=== PATIENT | male | born 1960 | race Caucasian/White ===

== ENCOUNTER 2017-04-16 07:56 | Inpatient (IN) | payer BC, MEDICARE ==
[2017-04-16] MEDS ORDERED: ONDANSETRON 4 MG/2 ML VIAL IVP STA (08:22)
[2017-04-16] MEDS ORDERED: SODIUM CHLORIDE 0.9% 1,000 ML IV ONE (08:22)
[2017-04-16] MEDS ORDERED: HYDROmorphone 1 MG/ML 1 ML SYRINGE IVP STA (08:22)
[2017-04-16 08:31] LABS: Basophils # (A) 0.1 k/uL (0-0.2); Basophils % (A) 1 %; Eosinophils # (A) 0.3 k/uL (0-0.7); Eosinophils % (A) 3 %; HCT 51.8 % (39.0-53.0); HDW 2.21; HGB 17.2 gm/dL (13.0-17.5); Luc # (Auto) 0.22; Luc % (Auto) 2; Lymphocytes # (A) 2.1 k/uL (1.0-4.8); Lymphocytes % (A) 19 %; MCH 32.3 pg (25.0-35.0); MCHC 33.2 g/dL (31.0-37.0); MCV 97.3 fL (80.0-100.0); Monocytes # (A) 0.6 k/uL (0-1.0); Monocytes % (A) 5 %; Neutrophils # (A) 7.8 k/uL (1.3-7.7); Neutrophils % (A) 71 %; RBC 5.33 m/uL (4.30-5.90)
--- NOTE | 2017-04-16 08:31 | ED ---
Abdominal Pain HPI - General Chief Complaint: Abdominal Pain Stated Complaint: abd pain Time Seen by Provider: 04/16/17 08:10 Source: patient, RN notes reviewed Mode of arrival: ambulatory Limitations: no limitations - History of Present Illness Initial Comments: Patient is a 57-year-old male presents to the emergency room for evaluation of abdominal pain. Patient states pain began around 4 AM this morning. Patient states the pain is epigastric area. Patient states he can't sit still secondary to pain. Patient states she has a history of bariatric surgery about [address] Juarez. Patient denies any complications after the surgery. She denies new foods or recent travel outside the country. Patient states she hasn't been able to urinate this morning. Patient denies history of kidney stones. Patient states she is nauseous but denies vomiting. Patient denies constipation or diarrhea. Patient denies chest pain or shortness of breath. Patient denies fevers or chills. Patient denies headache or dizziness. - Related Data Home Medications Medication Instructions Recorded Confirmed Amitriptyline HCl [Elavil] 50 mg PO HS 04/16/17 04/16/17 Naproxen [Naprosyn] 500 mg PO Q12HR PRN 04/16/17 04/16/17 fentaNYL 50MCG/HR PATCH [Duragesic 50 mcg TRANSDERM Q48H 04/16/17 04/16/17 50MCG/HR] tiZANidine HCL [Zanaflex] 4 mg PO Q6H PRN 04/16/17 04/16/17 Allergies Allergy/AdvReac Type Severity Reaction Status Date / Time No Known Allergies Allergy Verified 04/16/17 11:17 Review of Systems ROS Statement: Those systems with pertinent positive or pertinent negative responses have been documented in the HPI. ROS Other: All systems not noted in ROS Statement are negative. Past Medical History Past Medical History: COPD History of Any Multi-Drug Resistant Organisms: None Reported Past Surgical History: Bariatric Surgery Additional Past Surgical History / Comment(s): Pt states he has pins and rods in L1 and S5 Past Psychological History: Anxiety Smoking Status: Current every day smoker Past Alcohol Use History: Occasional Past Drug Use History: None Reported General Exam - General Exam Comments Initial Comments: Pacing exam room, anxious secondary to pain. Limitations: no limitations General appearance: alert, anxious Head exam: Present: atraumatic, normocephalic, normal inspection Eye exam: Present: normal appearance ENT exam: Present: normal exam Neck exam: Present: normal inspection Respiratory exam: Present: normal lung sounds bilaterally. Absent: respiratory distress Cardiovascular Exam: Present: regular rate, normal rhythm, normal heart sounds GI/Abdominal exam: Present: soft, tenderness (mid-epigastric), guarding ( Voluntary guarding on palpation), normal bowel sounds. Absent: rebound, rigid Extremities exam: Present: normal inspection Back exam: Present: normal inspection Neurological exam: Present: alert, oriented X3, CN II-XII intact Psychiatric exam: Present: normal affect, anxious Skin exam: Present: warm, dry, intact, normal color. Absent: rash Course Vital Signs 04/16/17 04/16/17 07:57 11:44 Temperature 97.5 F L 97.3 F L Pulse Rate 62 68 Respiratory 20 15 Rate Blood Pressure 129/75 123/72 O2 Sat by Pulse 93 L 98 Oximetry Medical Decision Making - Lab Data Result diagrams: 04/16/17 08:10 04/16/17 08:10 Lab Results 04/16/17 04/16/17 04/16/17 Range/Units 08:10 08:10 08:55 WBC 11.0 H (3.8-10.6) k/uL RBC 5.33 (4.30-5.90) m/uL Hgb 17.2 (13.0-17.5) gm/dL Hct 51.8 (39.0-53.0) % MCV 97.3 (80.0-100.0) fL MCH 32.3 (25.0-35.0) pg MCHC 33.2 (31.0-37.0) g/dL RDW 13.0 (11.5-15.5) % Plt Count 246 (150-450) k/uL Neutrophils % 71 % Lymphocytes % 19 % Monocytes % 5 % Eosinophils % 3 % Basophils % 1 % Neutrophils # 7.8 H (1.3-7.7) k/uL Lymphocytes # 2.1 (1.0-4.8) k/uL Monocytes # 0.6 (0-1.0) k/uL Eosinophils # 0.3 (0-0.7) k/uL Basophils # 0.1 (0-0.2) k/uL Sodium 141 (137-145) mmol/L Potassium 4.7 (3.5-5.1) mmol/L Chloride 103 (98-107) mmol/L Carbon Dioxide 28 (22-30) mmol/L Anion Gap 10 mmol/L BUN 21 H (9-20) mg/dL Creatinine 0.79 (0.66-1.25) mg/dL Est GFR (MDRD) Af Amer >60 (>60 ml/min/1.73 sqM) Est GFR (MDRD) Non-Af >60 (>60 ml/min/1.73 sqM) Glucose 116 H (74-99) mg/dL Calcium 10.2 (8.4-10.2) mg/dL Magnesium 1.8 (1.6-2.3) mg/dL Total Bilirubin 0.6 (0.2-1.3) mg/dL AST 28 (17-59) U/L ALT 33 (21-72) U/L Alkaline Phosphatase 95 (38-126) U/L Total Protein 8.2 (6.3-8.2) g/dL Albumin 4.5 (3.5-5.0) g/dL Amylase 53 (30-110) U/L Lipase 73 (23-300) U/L Urine Color Yellow Urine Appearance Clear (Clear) Urine pH 5.5 (5.0-8.0) Ur Specific Haynes 1.033 (1.001-1.035) Urine Protein 1+ H (Negative) Urine Glucose (UA) Negative (Negative) Urine Ketones Trace H (Negative) Urine Blood Small H (Negative) Urine Nitrite Negative (Negative) Urine Bilirubin Negative (Negative) Urine Urobilinogen 3.0 (<2.0) mg/dL Ur Leukocyte Esterase Small H (Negative) Urine RBC 15 H (0-5) /hpf Urine WBC 5 (0-5) /hpf Ur Squamous Epith Cells 1 (0-4) /hpf Calcium Oxalate Crystal Occasional H (None) /hpf Hyaline Casts 1 (0-2) /lpf Urine Mucus Many H (None) /hpf Disposition Clinical Impression: Small bowel obstruction Disposition: ADMITTED IP TO THIS [facility] Condition: Stable Referrals: Rey Brewer MD [Primary Care Provider] - 1-2 days Decision Date: 04/16/17
[2017-04-16 08:42] LABS: ALT 33 U/L (21-72); AST 28 U/L (17-59); Alkaline Phosphatase 95 U/L (38-126); Amylase 53 U/L (30-110); Anion Gap 10 mmol/L; Blood Urea Nitrogen 21 mg/dL (9-20); Calcium 10.2 mg/dL (8.4-10.2); Carbon Dioxide 28 mmol/L (22-30); Chloride 103 mmol/L (98-107); Glucose 116 mg/dL (74-99); Magnesium 1.8 mg/dL (1.6-2.3); Non-African American GFR(MDRD) >60 (>60 ml/min/1.73 sqM); Potassium 4.7 mmol/L (3.5-5.1); Sodium 141 mmol/L (137-145); Total Bilirubin 0.6 mg/dL (0.2-1.3); Total Protein 8.2 g/dL (6.3-8.2)
[2017-04-16 09:10] LABS: Appearance,Urine Clear (Clear); Bilirubin,Urine Negative (Negative); Calcium Oxalate Crystals,Urine Occasional /hpf; Glucose,Urine (UA) Negative (Negative); Ketones,Urine Trace (Negative); Leukocyte Esterase,Urine Small (Negative); Mucus,Urine Many /hpf; Nitrite,Urine Negative (Negative); PH, Urine 5.5 (5.0-8.0); Particle Count 7361; Protein,Urine 1+ (Negative); RBC,Urine 15 /hpf (0-5); Specific Gravity,Urine 1.033 (1.001-1.035); Squamous Epithelial Cell,Urine 1 /hpf (0-4); UA Billing (MACRO vs. MICRO) MICRO; WBC,Urine 5 /hpf (0-5)
[2017-04-16] MEDS ORDERED: RX INFO: IV CONTRAST WAS GIVEN 1 EACH MISC MISCELLANE PRN (09:43)
[2017-04-16] MEDS ORDERED: IOHEXOL 350 MG/ML 25 ML BOTTLE (ORAL USE) PO PRN (09:43)
[2017-04-16] MEDS ORDERED: KETOROLAC 30 MG/ML 1 ML VIAL IVP STA (10:19)
[2017-04-16] MEDS ORDERED: METOCLOPRAMIDE 5 MG/ML 2 ML VIAL IVP STA (10:19)
[2017-04-16] MEDS ORDERED: FAMOTIDINE 20 MG/2 ML VIAL IV STA (10:20)
[2017-04-16] MEDS ORDERED: MORPHINE SULFATE 4 MG/ML SYRINGE IVP STA (10:54)
--- NOTE | 2017-04-16 12:08 | CT ---
EXAMINATION TYPE: CT abdomen pelvis w con DATE OF EXAM: 04/16/2017 COMPARISON: CT abdomen and pelvis October 22, 2013 HISTORY: Upper abdominal pain since 4:[address] DLP: 652.5 mGycm, Automated Exposure Control for Dose Reduction was Utilized. CONTRAST: CT scan of the abdomen and pelvis is performed with oral and with IV Contrast, patient injected with 100 mL of Omnipaque 300. FINDINGS: LUNG BASES: No significant abnormality is appreciated. LIVER/GB: Cholecystectomy clips are redemonstrated. PANCREAS: No significant abnormality is seen. SPLEEN: No significant abnormality is seen. ADRENALS: No significant abnormality is seen. KIDNEYS: Bladder is poorly distended and thus suboptimally evaluated. BOWEL: There is interval removal of lap band device. Surgical changes with clips are seen at and just above diaphragmatic hiatus. There is small to moderate size hiatal hernia. Contrast is seen in nondi stended stomach below diaphragm. There is contrast dilated third and fourth portion of duodenum. Ther e contrast dilated small bowel loops in the left abdomen with gradual transition to fluid dilated sma ll bowel loops throughout the right abdomen. There are some nondistended small bowel loops in the pel vis. There are small bowel feces sign in dilated small bowel in the anterior lower abdomen there appe ars to be gradual transition to nondistended bowel in the anterior mid abdomen near umbilicus around axial image 42 and coronal image 19. Fecal material is seen in nondistended colon. PROSTATE/SEMINAL VESICLES: Prostate gland is heterogeneous in appearance and upper limits of normal i n size on axial image 76, correlate for BPH is advised. LYMPH NODES: No greater than 1cm abdominal or pelvic lymph nodes are appreciated. OSSEOUS STRUCTURES: Postsurgical change L4-L5 and L5-S1 level is seen with laminectomy defects and sp inous process resection. There is posterior extruded artificial disc L4-L5 level effacing anterior th ecal sac redemonstrated not significantly changed from June 11, [address] OTHER: No significant additional abnormality is seen. IMPRESSION: CT findings consistent with severe distal small bowel obstruction centered in the proxima l to mid ileal small bowel in the anterior aspect of the mid abdomen. Underlying adhesions suspected.
[2017-04-16] MEDS ORDERED: NALOXONE 0.4 MG/ML 1 ML VIAL IV PRN (12:26)
[2017-04-16] MEDS ORDERED: SODIUM CHLORIDE 0.9% 1,000 ML IV SCH (12:30)
--- NOTE | 2017-04-16 13:46 | P.GSHP ---
History of Present Illness H&P Date: 04/16/17 Chief Complaint: Abdominal pain. The patient is a 57-year-old white male who developed severe abdominal pain crampy in nature. Nature mostly in the epigastric area associated with nausea at about 4 AM this morning that awoke him from sleep. The pain progressively worsened. She states it was extremely severe to the point where he presented to the emergency room. No past history of similar pain. Patient had had a Odalis fundoplication many years ago. Also had lap band surgery. Subsequent removal of lap band & sleeve procedure by Dr. Juarez.. Also had cholecystectomy. Computed tomography scan of the abdomen and pelvis with contrast that revealed evidence of a distal small bowel obstruction involving the mid to distal terminal ileum probably secondary to adhesive disease. Past history. As above. Multiple back surgeries 3 with rods & pins placements. Has chronic pain. On fentanyl patch. Also takes naproxen and Elavil and Zanaflex. Had the colonoscopies in the recent past as well as EGDs. ALLERGIES. None known. Social history. Chronic smoker up to a pack cigarettes a day. Rarely drinks alcohol. Systems review. As above. No chest pain no cough hemoptysis. No definite vomiting. Has a history of hard stool. Takes a stool softener daily. Did have to strain somewhat this morning prior to the onset of his pain. Did have a bowel movement at about 4 AM today. Has had regular bowel movements prior to this. No blood per rectum. Diminished urine output. He inks since his pain this morning. No REFUELER problems. Chronic back pain. On examination the patient is well-built well-nourished weighs about the 81.64 kg. He is in no acute distress at this time but did receive analgesia in the ER. Temperature is normal. Vitals are normal. Mucous membranes on the dry side. Color is good head and neck otherwise normal. Heart regular rhythm no murmurs. Lungs are clear to P&A. Abdomen reveals a midline scar as well as a right-sided abdominal scar. I'll to moderate tenderness mostly in the epigastric area with some voluntary guarding but no rebound or rigidity. No mass noted. Has a small umbilical hernia easily reducible. No groin hernias are noted. Remainder of the abdomen is soft and benign. Has normoactive bowel sounds. It is normal. Motion. REFUELER grossly intact no focal deficit. Laboratory studies are noted. WBCs 12,100. Hemoglobin is normal. The rent slightly elevated to 21. Creatinine is normal. LFTs are normal. Urinalysis was noted. Has small amount of leukocyte esterase CT was reviewed. Has some dilated loops of small bowel with a questionable transition point the in the mid abdomen. Impression. Suspect the small bowel obstruction which may be secondary to adhesive disease from multiple previous surgeries. History of chronic back pain. On fentanyl patch Recommendation. We will treat patient conservatively with the nasogastric suction IV fluids during. Repeat abdominal films in the morning with labwork. Past Medical History Past Medical History: COPD History of Any Multi-Drug Resistant Organisms: None Reported Past Surgical History: Bariatric Surgery Additional Past Surgical History / Comment(s): Pt states he has pins and rods in L1 and S5 Past Psychological History: Anxiety Smoking Status: Current every day smoker Past Alcohol Use History: Occasional Past Drug Use History: None Reported Medications and Allergies Home Medications Medication Instructions Recorded Confirmed Type Amitriptyline HCl [Elavil] 50 mg PO HS 04/16/17 04/16/17 History Naproxen [Naprosyn] 500 mg PO Q12HR PRN 04/16/17 04/16/17 History fentaNYL 50MCG/HR PATCH [Duragesic 50 mcg TRANSDERM Q48H 04/16/17 04/16/17 History 50MCG/HR] tiZANidine HCL [Zanaflex] 4 mg PO Q6H PRN 04/16/17 04/16/17 History Allergies Allergy/AdvReac Type Severity Reaction Status Date / Time No Known Allergies Allergy Verified 04/16/17 11:17 Surgical - Exam Vital Signs Temp Pulse Resp BP Pulse Ox 97.5 F L 62 20 129/75 93 L 04/16/17 07:57 04/16/17 07:57 04/16/17 07:57 04/16/17 07:57 04/16/17 07:57 Results - Labs 04/16/17 08:10 04/16/17 08:10 Abnormal Lab Results - Last 24 Hours (Table) 04/16/17 04/16/17 04/16/17 Range/Units 08:10 08:10 08:55 WBC 11.0 H (3.8-10.6) k/uL Neutrophils # 7.8 H (1.3-7.7) k/uL BUN 21 H (9-20) mg/dL Glucose 116 H (74-99) mg/dL Urine Protein 1+ H (Negative) Urine Ketones Trace H (Negative) Urine Blood Small H (Negative) Ur Leukocyte Esterase Small H (Negative) Urine RBC 15 H (0-5) /hpf Calcium Oxalate Crystal Occasional H (None) /hpf Urine Mucus Many H (None) /hpf Diabetes panel 04/16/17 Range/Units 08:10 Sodium 141 (137-145) mmol/L Potassium 4.7 (3.5-5.1) mmol/L Chloride 103 (98-107) mmol/L Carbon Dioxide 28 (22-30) mmol/L BUN 21 H (9-20) mg/dL Creatinine 0.79 (0.66-1.25) mg/dL Glucose 116 H (74-99) mg/dL Calcium 10.2 (8.4-10.2) mg/dL AST 28 (17-59) U/L ALT 33 (21-72) U/L Alkaline Phosphatase 95 (38-126) U/L Total Protein 8.2 (6.3-8.2) g/dL Albumin 4.5 (3.5-5.0) g/dL Calcium panel 04/16/17 Range/Units 08:10 Calcium 10.2 (8.4-10.2) mg/dL Albumin 4.5 (3.5-5.0) g/dL Pituitary panel 04/16/17 Range/Units 08:10 Sodium 141 (137-145) mmol/L Potassium 4.7 (3.5-5.1) mmol/L Chloride 103 (98-107) mmol/L Carbon Dioxide 28 (22-30) mmol/L BUN 21 H (9-20) mg/dL Creatinine 0.79 (0.66-1.25) mg/dL Glucose 116 H (74-99) mg/dL Calcium 10.2 (8.4-10.2) mg/dL Adrenal panel 04/16/17 Range/Units 08:10 Sodium 141 (137-145) mmol/L Potassium 4.7 (3.5-5.1) mmol/L Chloride 103 (98-107) mmol/L Carbon Dioxide 28 (22-30) mmol/L BUN 21 H (9-20) mg/dL Creatinine 0.79 (0.66-1.25) mg/dL Glucose 116 H (74-99) mg/dL Calcium 10.2 (8.4-10.2) mg/dL Total Bilirubin 0.6 (0.2-1.3) mg/dL AST 28 (17-59) U/L ALT 33 (21-72) U/L Alkaline Phosphatase 95 (38-126) U/L Total Protein 8.2 (6.3-8.2) g/dL Albumin 4.5 (3.5-5.0) g/dL
[2017-04-16] MEDS: MORPHINE SULFATE 4 MG/ML SYRINGE IV PRN ×3 (14:10→21:22)
[2017-04-16] MEDS: LORazepam 2 MG/ML SYRINGE IV PRN ×2 (14:57→21:23)
[2017-04-16] MEDS ORDERED: ENALAPRILAT 1.25 MG/ML 1 ML VIAL IVP PRN (14:57)
[2017-04-16] MEDS: PANTOPRAZOLE 40 MG/10 ML VIAL IVP SCH (15:38)
[2017-04-16] MEDS: metroNIDAZOLE-NS PMX 500 MG in SALINE 1 100ML.BAG IVPB SCH ×2 (15:38→23:36)
[2017-04-16] MEDS: IPRATROPIUM-ALBUTEROL 3 ML NEB INHALATION SCH ×2 (16:05→19:44)
--- NOTE | 2017-04-16 17:32 | XR ---
EXAMINATION TYPE: XR chest 1V confirm line [facility] DATE OF EXAM: 04/16/2017 CLINICAL HISTORY: NG tube placement. TECHNIQUE: Single AP portable upright view of the chest is obtained. COMPARISON: CT chest June 26, 2010 FINDINGS: There is no suspicious focal airspace opacity, pleural effusion, or pneumothorax seen bila terally. Cardiac silhouette size is within normal limits. Nasogastric tube is seen, I cannot see tip past lower thoracic vertebra or into the epigastric region, advise advancing 7 to 9 cm. Cholecystecto my clips are noted. Additional clip near diaphragmatic hiatus is present. IMPRESSION: Nasogastric tube tip is not appreciated into stomach below diaphragm, recommend advancing 7 to 9 cm. No acute pulmonary process is seen.
[2017-04-16] MEDS: SODIUM CHLORIDE 0.9% 1,000 ML with POTASSIUM CHLORIDE 10 MEQ IV SCH ×4 (17:35→23:37)
[2017-04-16] MEDS: ONDANSETRON 4 MG/2 ML VIAL IVP PRN (18:20)
[2017-04-16] MEDS: FAMOTIDINE 20 MG/2 ML VIAL IV SCH (20:17)
[2017-04-16] MEDS: HEPARIN SODIUM,PORCINE 5,000 UNIT/ML 1 ML VIAL SQ SCH (20:17)
[2017-04-17] MEDS: MORPHINE SULFATE 4 MG/ML SYRINGE IV PRN ×6 (00:14→19:49)
[2017-04-17] MEDS: LORazepam 2 MG/ML SYRINGE IV PRN ×4 (05:35→23:00)
[2017-04-17] MEDS: ONDANSETRON 4 MG/2 ML VIAL IVP PRN ×2 (05:36→14:08)
[2017-04-17 07:47] LABS: ALT 60 U/L (21-72); AST 51 U/L (17-59); Alkaline Phosphatase 87 U/L (38-126); Anion Gap 7 mmol/L; Blood Urea Nitrogen 14 mg/dL (9-20); Calcium 8.4 mg/dL (8.4-10.2); Carbon Dioxide 25 mmol/L (22-30); Chloride 106 mmol/L (98-107); Glucose 85 mg/dL (74-99); Non-African American GFR(MDRD) >60 (>60 ml/min/1.73 sqM); Potassium 4.5 mmol/L (3.5-5.1); Sodium 138 mmol/L (137-145); Total Bilirubin 0.8 mg/dL (0.2-1.3); Total Protein 5.9 g/dL (6.3-8.2)
[2017-04-17 08:05] LABS: Basophils # (A) 0.1 k/uL (0-0.2); Basophils % (A) 1 %; CH 31.7; CHCM 32.8; Eosinophils # (A) 0.3 k/uL (0-0.7); Eosinophils % (A) 4 %; HCT 40.6 % (39.0-53.0); HDW 2.21; Luc # (Auto) 0.12; Luc % (Auto) 2; Lymphocytes # (A) 1.5 k/uL (1.0-4.8); Lymphocytes % (A) 22 %; MCH 32.6 pg (25.0-35.0); MCHC 33.6 g/dL (31.0-37.0); Mean Platelet Volume 7.6; Monocytes # (A) 0.3 k/uL (0-1.0); Monocytes % (A) 5 %; Neutrophils # (A) 4.5 k/uL (1.3-7.7); Neutrophils % (A) 67 %; RBC 4.18 m/uL (4.30-5.90); RDW 12.8 % (11.5-15.5); WBC 6.8 k/uL (3.8-10.6); WBC (Perox) 7.13
[2017-04-17 08:08] LABS: HGB 13.6 gm/dL (13.0-17.5)
[2017-04-17] MEDS: FAMOTIDINE 20 MG/2 ML VIAL IV SCH (08:08)
[2017-04-17] MEDS: HEPARIN SODIUM,PORCINE 5,000 UNIT/ML 1 ML VIAL SQ SCH ×2 (08:08→19:49)
[2017-04-17] MEDS: PANTOPRAZOLE 40 MG/10 ML VIAL IVP SCH (08:08)
[2017-04-17] MEDS: metroNIDAZOLE-NS PMX 500 MG in SALINE 1 100ML.BAG IVPB SCH ×3 (08:09→23:01)
[2017-04-17] MEDS: IPRATROPIUM-ALBUTEROL 3 ML NEB INHALATION SCH ×4 (08:10→19:46)
[2017-04-17] MEDS: SODIUM CHLORIDE 0.9% 1,000 ML with POTASSIUM CHLORIDE 10 MEQ IV SCH ×8 (08:14→23:01)
--- NOTE | 2017-04-17 08:59 | XR ---
EXAMINATION TYPE: XR abdomen complete w decub DATE OF EXAM: 04/17/2017 CLINICAL HISTORY: Small bowel obstruction progress study TECHNIQUE: Supine and upright views of the abdomen are obtained. COMPARISON: CT abdomen and pelvis from yesterday. FINDINGS: Nasogastric tube is coiled in distal esophagus. There are surgical clips at diaphragmatic h iatus redemonstrated. Recurrent hiatal hernia is present on CT likely level of coiled NG tube. There is interval progression of contrast into nondistended colon. There is some paucity of small bowel gas . There is interval improvement in small bowel dilatation after NG tube placement No pneumoperitoneum is present. Cholecystectomy clips are redemonstrated. Postsurgical changes lower lumbar spine is again seen. IMPRESSION: Interval placement of nasogastric tube coiled in hiatal hernia above diaphragm with impro vement in small bowel dilatation. Interval passage of contrast to colonic level is noted. All finding s are consistent with resolving or improving distal small bowel obstruction.
--- NOTE | 2017-04-17 09:29 | P.PN ---
Progress Note - Text The patient was admitted with evidence of the small bowel obstruction. Had NG tube placed with some difficulty yesterday. Adequate output over 500 amalgams the since his admission. He feels a little better. Less pain. Has been passing some flatus now. On examination the patient is in no acute distress. Temperature is normal. Vitals are stable. The abdomen is quite soft with mild epigastric tenderness but no guarding or rebound or rigidity. No hernia no mass. The labs are pending. X-ray of the abdomen shows improvement in his small bowel obstruction with contrast now in the colon. Impression. Improving small bowel obstruction probably secondary to adhesions. Recommendation. Continue current management. Repeat abdominal films tomorrow. Further management will depend on his clinical course.
[2017-04-17] MEDS: KETOROLAC 30 MG/ML 1 ML VIAL IVP PRN (13:20)
--- NOTE | 2017-04-17 14:24 | P.CONS ---
History of Present Illness - Reason for Consult Consult date: 04/16/17 Medical management Requesting physician: Jose D Juarez - Chief Complaint Abdominal pain and small bowel obstruction, COPD, chronic back pain, neurop - History of Present Illness 57-year-old male one of Dr. Brewer's patient who developed to have severe abdominal pain in the epigastric and mid abdominal region started around 4:00 in the morning while asleep become severely progress developed to have severe nausea vomiting. 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 Patient is known Dr. Juarez for a while had Band removed in the past from previous history of surgery also known to have history of from COPD has been well controlled lately. Patient ended up coming to demurs [facility] at [facility] where was seen and evaluated computer tomography showed evidence of distal small bowel obstruction involve the mid to distal terminal ileum trouble secondary to adhesion. NG tube was inserted on low suction patient started on fluid resuscitation hydration will be admitted to the hospital with above problem. Review of Systems Constitutional: Reports anorexia, Reports fatigue, Reports malaise, Denies as per HPI, Denies chills, Denies chronic headaches, Denies chronic pain, Denies daytime sleepiness, Denies fever, Denies lethargy, Denies night sweats, Denies poor appetite, Denies sweats, Denies weakness, Denies weight gain, Denies weight loss Eyes: bilateral as per HPI Ears: bilateral: decreased hearing Ears, nose, mouth and throat: Reports ant. neck pain, Reports nasal congestion, Reports sinus pressure, Denies as per HPI, Denies bleeding gums, Denies dental pain, Denies dysphagia, Denies epistaxis, Denies headache, Denies hoarseness, Denies mouth pain, Denies nasal discharge, Denies neck fullness/pressure, Denies neck lump, Denies nose pain, Denies odynophagia, Denies post-nasal drip, Denies sinus pain, Denies swelling in mouth, Denies swelling in throat, Denies sore throat, Denies vertigo, Denies voice changes Cardiovascular: Reports edema, Reports high blood pressure, Reports lightheadedness, Reports orthopnea, Reports palpitations, Reports rapid heart beat, Denies as per HPI, Denies chest pain, Denies claudication, Denies decreased exercise tolerance, Denies dyspnea on exertion, Denies irregular heart beat, Denies leg edema, Denies paroxysmal nocturnal dyspnea, Denies phlebitis, Denies shortness of breath, Denies syncope Respiratory: Reports congestion, Reports cough, Reports cough with sputum, Reports dyspnea, Denies as per HPI, Denies excessive sputum, Denies hemoptysis, Denies home oxygen, Denies pain, Denies pain on inspiration, Denies pleurisy, Denies respiratory infections, Denies sleep apnea, Denies snoring, Denies wheezing Gastrointestinal: Reports abdominal pain, Reports bloating, Reports excessive gas, Reports indigestion, Reports nausea, Reports vomiting, Denies as per HPI, Denies belching, Denies BRBPR, Denies change in bowel habits, Denies coffee ground emesis, Denies constipation, Denies diarrhea, Denies dyspepsia, Denies early satiety, Denies heartburn, Denies hematemesis, Denies hematochezia, Denies jaundice, Denies lactose intolerance, Denies loss of appetite, Denies melena Genitourinary: Reports nocturia, Reports polyuria, Denies as per HPI, Denies decreased libido, Denies difficulties fathering child, Denies discharge, Denies dysuria, Denies erectile dysfunction, Denies flank pain, Denies genital pain, Denies genital sores, Denies hematuria, Denies impotence, Denies incontinence, Denies kidney stones, Denies testicular lump, Denies testicular pain, Denies urinary frequency, Denies urinary hesitancy, Denies urinary retention Musculoskeletal: Reports neck pain, Reports neck stiffness, Denies as per HPI, Denies arm numbness/tingling, Denies atrophy, Denies fractures, Denies frequent falls, Denies gait dysfunction, Denies hot joints, Denies leg numbness/tingling , Denies limitation of motion, Denies loss of height, Denies low back pain, Denies morning stiffness, Denies muscle cramps, Denies muscle weakness, Denies myalgias, Denies prior amputations, Denies redness of joints, Denies shooting arm pain, Denies shooting leg pain Integumentary: Reports pruritus, Reports rash, Denies as per HPI, Denies acne, Denies boils, Denies brittle nails, Denies change in hair/nails, Denies color changes, Denies darkening of skin, Denies depigmentation, Denies dryness, Denies foot/leg ulcers, Denies growths, Denies hirsutism, Denies lesions, Denies onychomycosis, Denies sores, Denies striae, Denies unusual bruising, Denies wounds Neurological: Reports spasticity, Reports syncope, Denies as per HPI, Denies aphasia, Denies ataxia, Denies balance difficulties, Denies burning pain, Denies change in mentation, Denies change in smell/taste, Denies change in speech, Denies confusion, Denies convulsions, Denies double vision, Denies gait dysfunction, Denies head injury, Denies headaches, Denies hearing difficulties, Denies lack of coordination, Denies loss of vision, Denies memory loss, Denies migraines, Denies motor disturbance, Denies numbness, Denies paralysis, Denies paresthesias, Denies seizures, Denies sensory deficit, Denies tic, Denies tingling, Denies transient paralysis, Denies tremors, Denies vertigo, Denies weakness, Denies visual changes Psychiatric: Reports anxiety, Reports depression, Reports sadness/tearfulness, Denies as per HPI, Denies anhedonia, Denies anxiety attacks, Denies change in appetite, Denies change in libido, Denies change in sleep habits, Denies confusion, Denies difficulty concentrating, Denies disorientation, Denies hallucinations, Denies hopelessness, Denies hypersomnia, Denies insomnia, Denies irritability, Denies memory loss, Denies mood swings, Denies paranoia, Denies sleep disturbances, Denies suicidal ideation Endocrine: Reports cold intolerance, Reports fatigue, Reports flushing, Denies as per HPI, Denies deepening of the voice, Denies excessive sweating, Denies excessive thirst, Denies heat intolerance, Denies high blood sugars, Denies increase in ring/shoe/hat size, Denies low blood sugars, Denies nocturia, Denies palpitations, Denies polydipsia, Denies polyphagia, Denies polyuria, Denies proptosis, Denies recent glucocorticoid use, Denies thyroid mass, Denies weight change Hematologic/Lymphatic: Reports easy bruising, Denies as per HPI, Denies easy bleeding, Denies lymphadenopathy, Denies lymphedema, Denies thrombophilia Allergic/Immunologic: Reports allergic rhinitis, Denies as per HPI, Denies anaphylaxis, Denies angioedema, Denies gluten intolerance, Denies persistent infections, Denies seasonal allergies, Denies urticaria, Denies wheezing Past Medical History Past Medical History: COPD History of Any Multi-Drug Resistant Organisms: None Reported Past Surgical History: Bariatric Surgery Additional Past Surgical History / Comment(s): Pt states he has pins and rods in L1 and S5 Past Psychological History: Anxiety Smoking Status: Current every day smoker Past Alcohol Use History: Occasional Past Drug Use History: None Reported - Past Family History Mother Family Medical History: Hypertension Father Family Medical History: Congestive Heart Failure (CHF), Diabetes Mellitus Additional Family Medical History / Comment(s): 2013 Medications and Allergies Home Medications Medication Instructions Recorded Confirmed Type Amitriptyline HCl [Elavil] 50 mg PO HS 04/16/17 04/16/17 History Naproxen [Naprosyn] 500 mg PO Q12HR PRN 04/16/17 04/16/17 History fentaNYL 50MCG/HR PATCH [Duragesic 50 mcg TRANSDERM Q48H 04/16/17 04/16/17 History 50MCG/HR] tiZANidine HCL [Zanaflex] 4 mg PO Q6H PRN 04/16/17 04/16/17 History Allergies Allergy/AdvReac Type Severity Reaction Status Date / Time No Known Allergies Allergy Verified 04/16/17 11:17 Physical Exam Vitals: Vital Signs Temp Pulse Resp BP Pulse Ox 04/16/17 14:02 97.9 F 67 18 125/69 98 04/16/17 13:48 16 04/16/17 11:44 97.3 F L 68 15 123/72 98 04/16/17 07:57 97.5 F L 62 20 129/75 93 L Intake and Output 04/15/17 04/16/17 04/16/17 22:59 06:59 14:59 Other: Weight 81.647 kg Patient Weight 04/17/17 06:59 Weight 81.647 kg - Constitutional General appearance: no average body habitus, cooperative, no disheveled, no mild distress, no morbidly obese, no acute distress, no obese, no severe distress, no thin - EENT Eyes: no abnormal pupil, no anicteric sclerae, no disc margins sharp, no edentulous, no EOMI, no PERRLA, no fundus normal, no photophobia, no dentition normal, no poor dentition, no ptosis, no scleral icterus, normal appearance ENT: no hard of hearing, no hearing grossly normal, no NA/AT, normal oropharynx , no other, no pharyngeal erythema, no thrush, no tonsillar exudates, no tonsillar swelling Ears: bilateral: normal - Neck Neck: no lymphadenopathy, normal ROM, no other, no rigidity, no stridor, no thyromegaly Carotids: bilateral: upstroke normal, upstroke delayed Thyroid: bilateral: normal size - Respiratory Respiratory: bilateral: CTA, diminished, dullness - Cardiovascular Rhythm: regular Heart sounds: normal: S1, S2 Abnormal Heart Sounds: systolic murmur - Gastrointestinal General gastrointestinal: no absent bowel sounds, decreased bowel sounds, distended, no hepatomegaly, no hyperactive bowel sounds, no normal bowel sounds , no organomegaly, no rigid, no scaphoid, no soft, no splenomegaly, tenderness, no umbilical hernia, no ventral hernia - Integumentary Integumentary: no calor, no cellulitis, no cyanotic, no decreased turgor, no flushed, no jaundiced, normal, no normal turgor, pale, rash, no ulcer - Neurologic Neurologic: CNII-XII intact - Musculoskeletal Musculoskeletal: gait normal, generalized weakness, strength equal bilaterally - Psychiatric Psychiatric: A&O x's 3 Results CBC & Chem 7: 04/17/17 07:16 04/17/17 07:16 Labs: Abnormal Lab Results - Last 24 Hours (Table) 04/16/17 04/16/17 04/16/17 Range/Units 08:10 08:10 08:55 WBC 11.0 H (3.8-10.6) k/uL Neutrophils # 7.8 H (1.3-7.7) k/uL BUN 21 H (9-20) mg/dL Glucose 116 H (74-99) mg/dL Urine Protein 1+ H (Negative) Urine Ketones Trace H (Negative) Urine Blood Small H (Negative) Ur Leukocyte Esterase Small H (Negative) Urine RBC 15 H (0-5) /hpf Calcium Oxalate Crystal Occasional H (None) /hpf Urine Mucus Many H (None) /hpf Assessment and Plan Plan: 1 severe abdominal pain: Secondary to small bowel obstruction from most likely adhesion him out will continue conservative management for now Continue surgical consultation on daily basis. With elevated white blood cell might keep patient on Flagyl for now add second agent if needed. 2 small bowel obstruction: Continue conservative management repeat abdominal x- ray continue hydration and pain management. 3 possible enteritis versus diverticulitis: With the elevated white blood cell and his pain Will add Flagyl. 4 COPD: Continue patient on DuoNeb via nebulizer. 5 neuropathy: Has been on amitriptyline 50 mg daily at bedtime. 6 chronic lower back pain: Has been on fentanyl patch along with hydrocodone and Zanaflex. 7 hematuria and possibly kidney stone: Watch for any further symptom and if needed EP can be done. 8 hyperglycemia: On diet control. 9 severe GERD and GI prophylaxis: Patient will be on pantoprazole IV. 10 DVT prophylaxis: Patient will be on heparin subcutaneous. CODE STATUS: Full code. Dr. Juarez thank you very much for the consult if I can be any further help to please let me know.
--- NOTE | 2017-04-17 14:29 | P.PN ---
Subjective Principal diagnosis: Abdominal pain and small bowel obstruction, COPD, chronic back pain. 57-year-old male one of Dr. Brewer's patient who developed to have severe abdominal pain in the epigastric and mid abdominal region started around 4:00 in the morning while asleep become severely progress developed to have severe nausea vomiting. 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 Patient is known Dr. Juarez for a while had Band removed in the past from previous history of surgery also known to have history of from COPD has been well controlled lately. Patient ended up coming to demurs department at [facility] where was seen and evaluated computer tomography showed evidence of distal small bowel obstruction involve the mid to distal terminal ileum trouble secondary to adhesion. NG tube was inserted on low suction patient started on fluid resuscitation hydration will be admitted to the hospital with above problem. After the NG tube insertion yesterday patient felt much better, patient is passing some gas still have mild obstruction with partial x-ray today is better than the original one yesterday. Objective - Vital Signs Vital signs: Vital Signs Temp 97.6 F 04/17/17 13:46 Pulse 70 04/17/17 13:46 Resp 16 04/17/17 13:46 BP 106/62 04/17/17 13:46 Pulse Ox 97 04/17/17 13:46 Intake & Output 04/16/17 04/17/17 04/17/17 18:59 06:59 18:59 Intake Total 1675 Output Total 501 Balance 1174 Weight 81.647 kg Intake: Intake, IV Titration 1675 Amount Sodium Chloride 0.9% 1, 1575 000 ml @ 150 mls/hr IV . Q6H42M HEATHER with Potassium Chloride 10 meq Rx#: [id number] metroNIDAZOLE-NS PMX 500 100 mg In Saline 1 100ml.bag @ 100 mls/hr IVPB Q8HR HEATHER Rx#:[id number] Output: Gastric Drainage 500 Urine 1 Other: # Voids 3 - Constitutional General appearance: Present: cooperative, no acute distress. Absent: average body habitus, disheveled, mild distress, morbidly obese, obese, severe distress , thin - EENT EENT Comment(s): Has an NG tube in. Eyes: Present: normal appearance. Absent: abnormal pupil, anicteric sclerae, disc margins sharp, edentulous, EOMI, PERRLA, fundus normal, photophobia, dentition normal, poor dentition, ptosis, scleral icterus ENT: Present: normal oropharynx. Absent: hard of hearing, hearing grossly normal, NA/AT, other, pharyngeal erythema, thrush, tonsillar exudates, tonsillar swelling Ears: bilateral: normal - Neck Neck: Present: normal ROM. Absent: lymphadenopathy, other, rigidity, stridor, thyromegaly Carotids: bilateral: upstroke normal Thyroid: bilateral: normal size - Respiratory Respiratory: bilateral: diminished, dullness - Cardiovascular Rhythm: regular Heart sounds: normal: S1, S2 Abnormal Heart Sounds: Present: systolic murmur - Gastrointestinal Gastrointestinal Comment(s): Still have significant tenderness in midepigastric area and lower abdominal region area. General gastrointestinal: Present: distended, hepatomegaly, normal bowel sounds , tenderness. Absent: absent bowel sounds, decreased bowel sounds, hyperactive bowel sounds, organomegaly, rigid, scaphoid, soft, splenomegaly, umbilical hernia, ventral hernia - Integumentary Integumentary: Present: normal, pale, rash. Absent: calor, cellulitis, cyanotic , decreased turgor, flushed, jaundiced, normal turgor, ulcer - Neurologic Neurologic: Present: CNII-XII intact - Musculoskeletal Musculoskeletal: Present: gait normal, generalized weakness, strength equal bilaterally. Absent: right sided weakness, left sided weakness - Psychiatric Psychiatric: Present: A&O x's 3, appropriate affect. Absent: intact judgment & insight - Labs CBC & Chem 7: 04/17/17 07:16 04/17/17 07:16 Labs: Abnormal Lab Results - Last 24 Hours (Table) 04/17/17 04/17/17 Range/Units 07:16 07:16 RBC 4.18 L (4.30-5.90) m/uL Total Protein 5.9 L (6.3-8.2) g/dL Albumin 3.1 L (3.5-5.0) g/dL Assessment and Plan Plan: 1 severe abdominal pain: Secondary to small bowel obstruction from most likely adhesion him out will continue conservative management for now Continue surgical consultation on daily basis. With elevated white blood cell might keep patient on Flagyl for now add second agent if needed. 2 small bowel obstruction: Continue conservative management repeat abdominal x- ray continue hydration and pain management. X-ray today showed small improvement with small passage through the area still have NG tube and still on conservative management no need for surgery. 3 possible enteritis versus diverticulitis: With the elevated white blood cell and his pain Will add Flagyl. 4 COPD: Continue patient on DuoNeb via nebulizer. 5 neuropathy: Has been on amitriptyline 50 mg daily at bedtime. 6 chronic lower back pain: Has been on fentanyl patch along with hydrocodone and Zanaflex. 7 hematuria and possibly kidney stone: Watch for any further symptom and if needed EP can be done. Patient has not had any further bleed. 8 hyperglycemia: On diet control. 9 severe GERD and GI prophylaxis: Patient will be on pantoprazole IV. 10 DVT prophylaxis: Patient will be on heparin subcutaneous. CODE STATUS: Full code.
[2017-04-18] MEDS: MORPHINE SULFATE 4 MG/ML SYRINGE IV PRN ×6 (03:52→22:21)
[2017-04-18] MEDS: LORazepam 2 MG/ML SYRINGE IV PRN ×3 (05:02→17:54)
[2017-04-18] MEDS: IPRATROPIUM-ALBUTEROL 3 ML NEB INHALATION SCH ×4 (07:24→20:09)
--- NOTE | 2017-04-18 08:37 | XR ---
EXAMINATION TYPE: XR abdomen complete w decub DATE OF EXAM: 04/18/2017 CLINICAL HISTORY: Small bowel obstruction progress study. TECHNIQUE: Supine, upright, and left side down lateral decubitus views of the abdomen are obtained. COMPARISON: CT abdomen and pelvis from 2 days ago. Abdominal x-ray from yesterday. FINDINGS: Contrast in nondistended colon is redemonstrated. There is some paucity of small bowel gas with visualized gas is noted in nondistended small bowel loops in the lower central abdomen. Gas is s een in nondistended stomach. NG tube has been retracted with tip in mid esophagus just past mleanie. Numerous clips epigastric region are redemonstrated. Cholecystectomy clips are redemonstrated. Postsu rgical changes lumbosacral junction is again seen. No pneumoperitoneum is present. Lung bases remain clear. IMPRESSION: Interval retraction of coiled nasogastric tube. Persistent nondilated bowel gas pattern c onsistent with nonobstructive appearance.
[2017-04-18] MEDS: SODIUM CHLORIDE 0.9% 1,000 ML with POTASSIUM CHLORIDE 10 MEQ IV SCH ×6 (08:47→21:00)
[2017-04-18] MEDS: HEPARIN SODIUM,PORCINE 5,000 UNIT/ML 1 ML VIAL SQ SCH ×2 (09:05→20:53)
[2017-04-18] MEDS: PANTOPRAZOLE 40 MG/10 ML VIAL IVP SCH (09:05)
[2017-04-18] MEDS: metroNIDAZOLE-NS PMX 500 MG in SALINE 1 100ML.BAG IVPB SCH ×2 (10:01→17:02)
[2017-04-18] MEDS: KETOROLAC 30 MG/ML 1 ML VIAL IVP PRN ×2 (13:38→20:53)
--- NOTE | 2017-04-18 14:54 | P.PN ---
Progress Note - Text The patient is doing better. Was admitted with the small bowel obstruction probably secondary to adhesions. He is passing some flatus now. His abdominal films today showed nonspecific bowel gas pattern with no evidence of obstruction or dilated loops of bowel.. On examination the patient is awake alert oriented. Vitals are normal. Abdomen is quite soft not not surgically distended. No tenderness or guarding or rebound. Has some thickening of his abdominal wall musculature in the upper abdomen but no hernia no mass. Well-healed midline and right subcostal scars. No hernias or masses noted. Impression. Resolving small bowel obstruction probably secondary to adhesive disease. Recommendation. We will discontinue the NG tube today. Patient understands that he may have to be reinserted if he has recurrence of his symptoms. We'll start him back on a clear liquid diet and advanced to soft diet by tomorrow.
[2017-04-19] MEDS: metroNIDAZOLE-NS PMX 500 MG in SALINE 1 100ML.BAG IVPB SCH ×2 (00:05→09:16)
[2017-04-19] MEDS: LORazepam 2 MG/ML SYRINGE IV PRN ×2 (00:05→06:09)
[2017-04-19] MEDS: MORPHINE SULFATE 4 MG/ML SYRINGE IV PRN ×2 (02:43→06:14)
[2017-04-19] MEDS: SODIUM CHLORIDE 0.9% 1,000 ML with POTASSIUM CHLORIDE 10 MEQ IV SCH ×2 (04:04)
[2017-04-19] MEDS: KETOROLAC 30 MG/ML 1 ML VIAL IVP PRN (04:05)
[2017-04-19] MEDS: IPRATROPIUM-ALBUTEROL 3 ML NEB INHALATION SCH (07:05)
[2017-04-19 07:41] VITALS: BP 126/74; PULSE 69; RESP 14; TEMP 97.5
--- NOTE | 2017-04-19 08:07 | P.PN ---
Progress Note - Text The patient is doing much better. Was admitted with the small bowel obstruction. Resolved with the NG tube and conservative management. He tolerated his breakfast served this morning food including eggs and a bowel movement yesterday. Passing flatus. Minimal abdominal pain. On examination he is afebrile. In no distress. Just completed his breakfast. His abdomen is quite soft and nontender no mass or organomegaly or distention or hernias noted. Impression small bowel obstruction secondary probably to adhesive disease. Multiple abdominal surgeries. Recommendation patient can be discharged. Advised on a soft diet small frequent meals. Follow-up with Dr. Juarez up next week.
[2017-04-19] MEDS ORDERED: ESOMEPRAZOLE 20 MG in SODIUM CHLORIDE 0.9% 50 ML IVPB SCH (09:00)
--- NOTE | 2017-04-19 10:13 | P.PN ---
Subjective 57-year-old male one of Dr. Brewer's patient who developed to have severe abdominal pain in the epigastric and mid abdominal region started around 4:00 in the morning while asleep become severely progress developed to have severe nausea vomiting. 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 Patient is known Dr. Juarez for a while had Band removed in the past from previous history of surgery also known to have history of from COPD has been well controlled lately. Patient ended up coming to demurs department at [facility] where was seen and evaluated computer tomography showed evidence of distal small bowel obstruction involve the mid to distal terminal ileum trouble secondary to adhesion. NG tube was inserted on low suction patient started on fluid resuscitation hydration will be admitted to the hospital with above problem. After the NG tube insertion yesterday patient felt much better, patient is passing some gas still have mild obstruction with partial x-ray today is better than the original one yesterday. 04/18: Patient remains with NG tube in place. He states he has been ambulating in the hallway. He has passed gas but no bowel movement. Patient is noted to have increased anxiety. Objective - Vital Signs Vital signs: Vital Signs Temp 97.8 F 04/18/17 07:00 Pulse 72 04/18/17 13:19 Resp 16 04/18/17 07:00 BP 122/72 04/18/17 07:00 Pulse Ox 98 04/18/17 07:00 Intake & Output 04/17/17 04/18/17 04/18/17 18:59 06:59 18:59 Intake Total 1700 1225 Output Total 50 200 Balance 1650 1025 Intake: Intake, IV Titration 1700 1225 Amount Sodium Chloride 0.9% 1, 1200 1125 000 ml @ 150 mls/hr IV . [id number] HEATHER with Potassium Chloride 10 meq Rx#: [id number] metroNIDAZOLE-NS PMX 500 500 100 mg In Saline 1 100ml.bag @ 100 mls/hr IVPB Q8HR HEATHER Rx#:[id number] Output: Gastric Drainage 200 Emesis 50 Other: Voiding Method Toilet # Voids 3 2 - Exam General appearance: Present: cooperative, no acute distress. Absent: average body habitus, disheveled, mild distress, morbidly obese, obese, severe distress , thin - EENT EENT Comment(s): Has an NG tube in. Eyes: Present: normal appearance. Absent: abnormal pupil, anicteric sclerae, disc margins sharp, edentulous, EOMI, PERRLA, fundus normal, photophobia, dentition normal, poor dentition, ptosis, scleral icterus ENT: Present: normal oropharynx. Absent: hard of hearing, hearing grossly normal, NA/AT, other, pharyngeal erythema, thrush, tonsillar exudates, tonsillar swelling Ears: bilateral: normal - Neck Neck: Present: normal ROM. Absent: lymphadenopathy, other, rigidity, stridor, thyromegaly Carotids: bilateral: upstroke normal Thyroid: bilateral: normal size - Respiratory Respiratory: bilateral: diminished, dullness - Cardiovascular Rhythm: regular Heart sounds: normal: S1, S2 Abnormal Heart Sounds: Present: systolic murmur - Gastrointestinal Gastrointestinal Comment(s): Still have significant tenderness in midepigastric area and lower abdominal region area. General gastrointestinal: Present: distended, hepatomegaly, normal bowel sounds , tenderness. Absent: absent bowel sounds, decreased bowel sounds, hyperactive bowel sounds, organomegaly, rigid, scaphoid, soft, splenomegaly, umbilical hernia, ventral hernia - Integumentary Integumentary: Present: normal, pale, rash. Absent: calor, cellulitis, cyanotic , decreased turgor, flushed, jaundiced, normal turgor, ulcer - Neurologic Neurologic: Present: CNII-XII intact - Musculoskeletal Musculoskeletal: Present: gait normal, generalized weakness, strength equal bilaterally. Absent: right sided weakness, left sided weakness - Psychiatric Psychiatric: Present: A&O x's 3, appropriate affect. Absent: intact judgment & insight - Labs CBC & Chem 7: 04/17/17 07:16 04/17/17 07:16 Assessment and Plan Plan: 1 severe abdominal pain: Secondary to small bowel obstruction from most likely adhesion, continue conservative management for now 2 small bowel obstruction: Continue conservative management repeat abdominal x- ray continue hydration and pain management. X-ray today showed small improvement with small passage through the area still have NG tube and still on conservative management no need for surgery. 3 possible enteritis versus diverticulitis: With the elevated white blood cell and his pain Will add Flagyl. 4 COPD: Continue patient on DuoNeb via nebulizer. 5 neuropathy: Has been on amitriptyline 50 mg daily at bedtime. 6 chronic lower back pain: Has been on fentanyl patch along with hydrocodone and Zanaflex. 7 hematuria and possibly kidney stone: Watch for any further symptom and if needed EP can be done. Patient has not had any further bleed. 8 hyperglycemia: On diet control. 9 severe GERD and GI prophylaxis: Patient will be on pantoprazole IV. 10 DVT prophylaxis: Patient will be on heparin subcutaneous. CODE STATUS: Full code. Discharge plan: Return home Impression and plan of care have been directed as dictated by the signing physician. Karen Daniels nurse practitioner acting as scribe for signing physician.
== END 2017-04-19 09:56 | disposition home or self-care (01) | DRG 390 ==
LOC: EC 07:56 → 3SUR 13:14
PROVIDERS: ADMIT Surgery; ATTEND Surgery
PROC: 0D9670Z Drainage of Stomach with Drainage Device, Via Natural or Artificial Opening (ICD-10-PCS; principal; 2017-04-16)
DX: K56.5 Intestinal adhesions [bands] with obstruction (postinfection) (principal); G62.9 Polyneuropathy, unspecified; J44.9 Chronic obstructive pulmonary disease, unspecified; K21.9 Gastro-esophageal reflux disease without esophagitis; K42.9 Umbilical hernia without obstruction or gangrene; F17.210 Nicotine dependence, cigarettes, uncomplicated; F41.9 Anxiety disorder, unspecified; G89.29 Other chronic pain; M54.9 Dorsalgia, unspecified; R31.9 Hematuria, unspecified; R73.9 Hyperglycemia, unspecified; Z98.84 Bariatric surgery status; Z79.891 Long term (current) use of opiate analgesic; Z79.899 Other long term (current) drug therapy
CPT/HCPCS: 74020; 74177; 80053; 81001; 82150; 83690; 83735; 85025; 94640; 96361; 96374; 96375; 99285

== ENCOUNTER → 2019-08-07 | Outpatient (CLI) | payer BC, MEDICARE ==
[2019-08-07 12:38] LABS: Partial Thromboplastin Time 26.3 sec (22.0-30.0); Prothrombin Time 10.3 sec (9.0-12.0)
[2019-08-07 13:10] LABS: Basophils # (A) 0.3 k/uL (0-0.2); Basophils % (A) 1 %; Eosinophils # (A) 0.4 k/uL (0-0.7); Eosinophils % (A) 1 %; HCT 46.6 % (39.0-53.0); HGB 15.2 gm/dL (13.0-17.5); Lymphocytes # (A) 2.5 k/uL (1.0-4.8); Lymphocytes % (A) 7 %; MCH 30.9 pg (25.0-35.0); MCHC 32.5 g/dL (31.0-37.0); MCV 94.9 fL (80.0-100.0); Mean Platelet Volume 7.8; Monocytes # (A) 1.3 k/uL (0-1.0); Monocytes % (A) 4 %; Neutrophils # (A) 31.1 k/uL (1.3-7.7); Neutrophils % (A) 87 %; Platelet Count 174 k/uL (150-450); RBC 4.92 m/uL (4.30-5.90); RDW 13.5 % (11.5-15.5)
== END | disposition home or self-care (01) ==
LOC: LABWHC1 11:28
PROVIDERS: ATTEND Internal Medicine
DX: Z00.5 Encounter for examination of potential donor of organ and tissue (principal)
CPT/HCPCS: 36415; 85025; 85610; 85730